=== PATIENT | male | born 2000 | race Caucasian/White ===

== ENCOUNTER 2024-02-24 23:33 | Emergency (ER) | payer OTHER ==
[2024-02-24 23:38] VITALS: BP 138/82; PULSE 72; RESP 19; TEMP 98; BMI 25.8
[2024-02-24] MEDS ORDERED: ALBUTEROL SO4 2.5/IPRATROPIUM 0.5 INH SOL 3 ML VIAL.NEB. NEB ONE (23:41)
[2024-02-24] MEDS: ALBUTEROL SO4 2.5/IPRATROPIUM 0.5 INH SOL 3 ML VIAL.NEB. NEB ONE (23:58)
[2024-02-25] MEDS ORDERED: ALBUTEROL SO4 2.5/IPRATROPIUM 0.5 INH SOL 3 ML VIAL.NEB. NEB ONE
[2024-02-25] MEDS ORDERED: predniSONE 20 MG TABLET (UD) ONE (00:14)
[2024-02-25] MEDS: predniSONE 20 MG TABLET (UD) PO ONE (00:16)
[2024-02-25] MEDS ORDERED: ALBUTEROL SO4 HFA INHALER IH ONE (00:20)
[2024-02-25] MEDS: ALBUTEROL SO4 HFA INHALER IH ONE (00:21)
== END 2024-02-25 00:58 | disposition home or self-care (01) ==
LOC: JER 23:33
PROC: 3E0F7GC Introduction of Other Therapeutic Substance into Respiratory Tract, Via Natural or Artificial Opening (ICD-10-PCS; principal; 2024-02-24)
DX: R05.9 Cough, unspecified (principal); J34.89 Other specified disorders of nose and nasal sinuses; J45.909 Unspecified asthma, uncomplicated; Z20.822 Contact with and (suspected) exposure to COVID-19
CPT/HCPCS: 0241U-QW; 99283-25